=== PATIENT | male | born 1965 | race Caucasian/White ===

== ENCOUNTER 2023-04-06 07:52 | Day surgery (SDC) | payer OTHER, SELFPAY ==
[2023-04-05 13:32] VITALS: BMI 34.4
[2023-04-06] VITALS (14 sets, daily range): BP systolic 117–152; BP diastolic 73–109; PULSE 82–104; RESP 9–17; TEMP 36.2–36.6; O2SAT 90–98; BMI 34.4
--- NOTE | 2023-04-06 | DI.RAD.S_ITS ---
PROCEDURE: XR HIP W PEL IF DONE LT 2V INDICATIONS: LEFT HIP POST OP TECHNIQUE: AP pelvis and lateral view of the left hip acquired. [facility], 04/06/2023, 11:45. FINDINGS: Bones: Patient is status post left hip arthroplasty, with hardware components in expected positions. The hip joint appears congruent. The visualized bony structures appear intact. Soft tissues: Overlying postoperative changes are noted. No suspicious soft tissue densities. IMPRESSION: Stable appearance of left hip arthroplasty. Dictated by: June Tobias M.D. on 04/06/2023 at 15:29 Approved by: June Tobias M.D. on 04/06/2023 at 15:29
[2023-04-06] MEDS: LACTATED RINGERS 1,000 ML 100 ML IV ×3 (08:26→14:19)
--- NOTE | 2023-04-06 08:42 | SUR.PREOP ---
AWAITING PREOP ORDERS FROM DR. MILLER
[2023-04-06] MEDS: VANCOMYCIN 1,000 MG/200 ML PIGGYBACK 200 MG IV (09:19)
--- NOTE | 2023-04-06 10:05 | PM.PREOP ---
Pre-operative Note Interval Note History & Physical reviewed/Exam performed by Physician: Yes Changes to H&P: No
[2023-04-06] MEDS: CEFAZOLIN 2 GM/100 ML PREMIX 100 ML IV (10:10)
--- NOTE | 2023-04-06 11:14 | SUR.OPER ---
Lateral on padded OR bed. Gel axillary roll. Arms secured on padded armboard with pillow supporting top arm. Padded hip positioner braces x4 - anterior and posterior chest and pelvis. Additional gel pad used anterior pelvis. Gel pad under bottom leg from knee to foot and secured with tape over sheet.
[2023-04-06] MEDS: BUPIVACAINE LIPOSOME 266 MG/20 ML VIAL INJ ×2 (11:20→11:27)
[2023-04-06] MEDS: BUPIVACAINE 0.25% (PF) 60 ML, EPINEPHrine 0.3 MG INJ (11:26)
--- NOTE | 2023-04-06 12:10 | DI.RAD.S_ITS ---
PROCEDURE: XR PELVIS 1-2V INDICATIONS: INTEROPERATIVE LEFT HIP TECHNIQUE: Intra-operative view of the pelvis and hip acquired. COMPARISON: None. FINDINGS: Bones: Intraoperative devices prior to placement of arthroplasty prostheses are in expected positions. No fractures or suspicious bony lesions. Soft tissues: Overlying surgical retractors are present, along with other intraoperative changes. IMPRESSION: Intraoperative radiograph from left hip arthroplasty. Please see the operative report for further details. Dictated by: Cisco Andrew M.D. on 04/06/2023 at 13:15 Approved by: Cisco Andrew M.D. on 04/06/2023 at 13:16
[2023-04-06] MEDS: TRANEXAMIC ACID 1,000 MG VIAL 2000 MG INJ ×2 (12:19→12:33)
[2023-04-06] MEDS: ACETAMINOPHEN IV 1,000 MG/100 ML VIAL 400 MG IV (12:24)
[2023-04-06] MEDS: HYDROMORPHONE 2 MG INJ IV ×4 (13:10→13:30)
[2023-04-06] MEDS: OXYCODONE/ACETAMINOPHEN 5/325 TABLET 1 TAB PO (13:16)
--- NOTE | 2023-04-06 13:30 | P.OP_ITS ---
Operative Date/Time/Diagnoses Date of procedure: 04/06/23 Time of procedure: 11:00 Pre-op diagnosis: Severe left hip AVN Post-op diagnosis: same Procedure & Clinicians Procedure: Left total hip arthroplasty posterior approach Same procedure as scheduled: Yes Indications: The patient has had progressively worsening left hip pain with radiographic changes consistent with severe AVN with collapse of the left femoral head. Non- operative management has failed and the patient has requested total hip replacement. The risks, benefits and alternatives to surgery were discussed with the patient prior to proceeding. Risks discussed included, but were not limited to, failure to relieve pain, leg length discrepancy, dislocation, stiffness, infection, nerve damage, deep venous thrombosis, pulmonary embolism, stroke, coma, heart attack, permanent paralysis and , as well as the potential need for eventual revision of the prosthetic. Surgeon: Nory Taveras Electric Meter Repairer: Roberto Magallanes Anesthesia Type: General Operative Notes Findings: Severe left hip AVN with collapse of the femoral head, adequate bone, adequate stability Closure Type: primary Specimen(s): none sent Prosthetic devices, grafts, tissues, transplants, or devices: Taveras and Nephew polar size 5 standard offset with collar, size 62 cup, neutral poly liner, 40 mm +4 Oxinium head, one 6.5 mm screw Estimated Blood Loss (mL): 250 Blood products transfused: none Procedure in detail: The patient was seen in the pre-operative area, where the patient identified the left hip as the operative site and this was marked with my initials. The patient received pre-operative antibiotics and was taken to the operating room and placed on the operative table in the right lateral decubitus position after satisfactory anesthesia. A realtime captioner out was performed. The left leg was prepared from the ankle to the iliac crest with ChloroPrep in the usual fashion and draped through sterile drapes. The hip was approached through an approximately 20 cm incision centered over the greater trochanter and curving gently posteriorly as it went proximally. This was carried sharply to the fascia ashleigh, which was divided and retracted with a self retaining retractor. The trochanteric bursa was excised with care being taken to avoid the sciatic nerve, which was identified and protected throughout the case. The short external rotators were incised and the capsulomuscular flap was raised and tagged for later repair. The hip was dislocated, and a femoral neck osteotomy performed approximately 15 mm above the lesser trochanter. Retractors were placed around the femur. The canal was opened with a box cutting osteotome, followed by a T handled reamer and a lateralizing reamer. The chili pepper broach was then used, followed by sequential broaching until there was good stability of the broach in the femur. Calcar reaming was performed. Retractors were placed to expose the acetabulum. The labrum and central soft tissues were removed. Reaming was performed initially going up in 2 mm increments, then 1 mm increments until good bite was obtained with an odd sized reamer. The cup 1 mm larger than the last reamer was then inserted using the ap propriate anteversion guides. It was further stabilized with a single screw. A trial neutral liner was placed. A trial head and neck were then placed and the hip relocated and checked for leg length and stability. An intraoperative film confirmed the component position and no evidence of fracture. The patient was stable in the position of sleep, of squatting, and could be put through a range of motion with 45 degrees internal rotation without dislocation. At 90 degrees flexion, internal rotation to 70? was possible before dislocation. This was felt to be satisfactory and the appropriate components were opened, and the trials were removed. The acetabular liner was impacted into position. The final stem was then impacted into the prepared femoral canal. A brief Betadine soak was performed while trialing with head options. The hip was meticulously irrigated with normal saline. Finally the femoral head was impacted onto the stem. The acetabulum was cleared of all material and the hip relocated one final time. The capsulomuscular flap was then repaired to the greater trochanter though an awl hole using the tag sutures. The short external rotators were repaired with a nonabsorbable suture. The fascia ashleigh was closed with Vicryl. The subcutaneous layer was closed with barbed sutures and surgical glue. An Aquacel Ag dressing was applied and the patient was taken to recovery having tolerated the procedure well. Complications: none Post-operative Condition: stable Disposition: Acute Care Plan for aftercare: The patient will be maintained on a standard total hip replacement protocol with weight bearing as tolerated and posterior hip precautions. The patient will receive Aspirin and sequential compression devices for DVT prophylaxis. The patient will be discharged home when safe for the home environment.
--- NOTE | 2023-04-06 14:34 | OT.IPNOTE ---
Pt just came up to the floor and to check on pt tomorrow for OT eval.
--- NOTE | 2023-04-06 15:35 | PT.IIE ---
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) Surgery Performed Operation Date: 04/06/23 10:15 Actual Procedures p Total Hip Arthroplasty(Left) - Nory Taveras MD Medical History (Last Updated 04/05/23 @ 13:41 by Yuliana Pollock RN) Ankle fracture HTN (hypertension) RBBB (right bundle branch block) (~2019) Physical Therapy Inpatient Evaluation/Re-Eval M1 PT/OT-IP Prior Functional Status Start: 04/06/23 16:31 Freq: NEEDED Status: Active Protocol: Document 04/06/23 15:35 AB (Rec: 04/06/23 16:41 AB [id number]) Medical Review Prior Functional Status Medical History Reviewed Yes Communication able to make needs known Mobility and Gait pt stated that he is independent with all mobilities and ambulation without AD but has been using 1 crutch for mobility ~ 1 month since he found out how bad his hip was after xray result Social History Household Members family Living Arrangements House Number of Floors (Floors) Two Floors Number of Stairs To Enter/Railing? 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 and younger sister His brother lives a few houses away and will be able to assist him if needed M2 PT-IP Current Condition Start: 04/06/23 16:31 Freq: NEEDED Status: Active Protocol: Document 04/06/23 15:35 AB (Rec: 04/06/23 16:41 AB [email or web address]) Physical Therapy Current Condition Current Condition Evaluation Date 04/06/23 Treatment Diagnosis s/p L TRES posterior approach; difficulty in walking Onset Date 04/06/23 M3 PT-IP Subjective Start: 04/06/23 16:31 Freq: NEEDED Status: Active Protocol: Document 04/06/23 15:35 AB (Rec: 04/06/23 16:41 AB [id number]) Subjective Physical Therapy Visit Type Type Initial Evaluation Visit Start Time 15:35 Visit Stop Time 16:30 Total Visit Minutes 55 Number of COOLING ROOM ATTENDANT Visits 0 Physical Therapy Visit Comments Patient Comments agreeable to do PT Therapy Pain Assessment Pain When Pain Assessed At Rest Pain Present Pain Present Pain Reported Location LEFT HIP Scale Used pain scale not stated: little pain per pt Pain Management Techniques Apply Cold,Distraction, Modification of Treatment,Re- positioning,Timing of Activity with Medications M4 PT-IP Mobility and Gait Start: 04/06/23 16:31 Freq: NEEDED Status: Active Protocol: Document 04/06/23 15:35 AB (Rec: 04/06/23 16:41 AB [id number]) PT-Bed Mobility Assessment Supine to Sit Supine to Sit Standby Assistance Sit to Supine Sit to Supine Standby Assistance PT-Transfer Assessment Sit to and From Stand Sit to and from Stand Contact Guard Assistance,1 Person Assistance,Use of Upper Extremities Equipment Transfer Assistive Device Gait Belt,Front Wheeled Walker Orthotic/Prosthetic Devices or Brace: No Transfers Transfer Destination Toilet Transfer Technique ambulated Transfer Ability Level of Assist Contact Guard Assistance,1 Person Assistance,Use of Upper Extremities Comments Mobility Comments pt supine in bed. BP: 144/90. educated pt on posterior hip precautions. pt completed supine to sit SBA . able to sit on EOB SBA. BP : 134/101. pt requested to use the toilet. completed sit to stand CGA and ambulated to the toilet ~ 15 ft using FWW CGA. able to maintain standing using FWW for support SBA to CGA while completing toileting. pt ambulated in room using FWW ~ 35 ft CGA. pt requested to go back to bed. completed sit to supine SBA. positioned pt in bed. call light and table placed within reach. Gait Assessment Gait Gait Assistance Required: Contact Guard Assist Distance (Feet) 35 Able to Maintain Weight Bearing Status Yes During Gait Assistive Devices Assistive Device Gait Belt,Front Wheeled Walker Orthotic/Prosthetic Devices or Brace: No Gait Deviations General Gait Pattern Antalgic,Decreased Stride Length,Decreased Feet Clearance Factors Limiting Gait Function Factors Limiting Gait Function Decreased Activity Tolerance, Decreased Strength,Limited Range of Motion,Pain,Poor Balance PT-Balance Assessment Sitting Balance and Reactions Static Sitting Balance Ability Normal Dynamic Sitting Balance Ability Normal Standing Balance and Reactions Static Standing Balance Ability Good Dynamic Standing Balance Ability Fair Device Used FWW M5 PT-IP Objective Assessments Start: 04/06/23 16:31 Freq: NEEDED Status: Active Protocol: Document 04/06/23 15:35 AB (Rec: 04/06/23 16:41 AB [id number]) Orientation Orientation/Cognition Level of Alertness Alert Orientation Name,Place,Situation Language Function Ability No Deficits Noted Safety Awareness Understands Safety Issues Memory Description Short Term Impaired Gross Range of Motion Lower Extremity ROM Assessment Within Functional Limits Strength Lower Extremity Strength Assessment Within Functional Limits Sensation Assessment Sensation Gross Sensation WNL Muscle Tone Muscle Tone WNL Yes M6 PT-IP Treatment Start: 04/06/23 16:31 Freq: NEEDED Status: Active Protocol: Document 04/06/23 15:35 AB (Rec: 04/06/23 16:41 AB [email or web address]) Physical Therapy Treatment Education Education Provided Precautions,Weight Bearing Status,Post-Op Packet,Safety M7 PT-IP Assessment and Plan Start: 04/06/23 16:31 Freq: NEEDED Status: Active Protocol: Document 04/06/23 15:35 AB (Rec: 04/06/23 16:41 AB [email or web address]) PT Summary Assessment and Plan Potential Rehabilitation Potential Good Status of Condition at Evaluation Evolving Summary Impairments Pain,ROM,Strength,Balance,Bed Mobility,Transfers,Gait, Activity Tolerance Assessment Summary pt s/p L TRES posterior approach POD0. pt requiring CGA with mobility using FWW. pt plans to go home with his brother to assist when needed. will continue to assess progress. will conduct caregiver training when appropriate as well as stair climbing training. Goals Bed Mobility Goal Independent Transfer Goal Independent,Front Wheeled Walker,Four Wheeled Walker Gait Goal Independent,Front Wheel Walker ,Four Wheel Walker Gait Distance 250 Other Goals improve transfers and ambulation using 4WW 300 ft mod I up/down 2 platform steps using FWW/4WW SBA Days to Meet Goals 5 Frequency of Treatment Frequency Of Treatment Twice a Day Treatment Plan Physical Therapy Treatment Plan Bed Mobility Training,Transfer Training,Gait Training, Therapeutic Exercise,Balance Retraining,Post Op Education, Discharge Planning,Hot or Cold Pack,Neuromuscular Re-ed, Coordination Retraining,Manual Therapy Other Recommendations and Next Treatment PT tx frequency: BID or as Focus tolerated Precautions Posterior Hip Precautions No Hip Flexion > 90 degrees,No Hip Internal Rotation,No Hip Adduction Weight Bearing Status Weight Bearing Status Weight Bear as Tolerated Allowed Weight Bearing Amount (enter % LLE WBAT or #) (%) Recommendations To Nursing Amount of Assist Needed 1 Person Assist Discharge Recommendations PT Discharge Recommendations Home with Assistance, Outpatient PT Transportation Needs at Discharge Private Vehicle
[2023-04-06] MEDS: CEFAZOLIN VIAL 3 GM in SODIUM CHLORIDE 0.9% 100 ML IV (20:32)
[2023-04-06] MEDS: ASPIRIN EC 81 MG TABLET PO (20:33)
[2023-04-06] MEDS: IBUPROFEN 400 MG TABLET PO (20:33)
[2023-04-06] MEDS: DOCUSATE 100 MG CAPSULE PO (20:34)
[2023-04-06] MEDS: ACETAMINOPHEN 325 MG TABLET 650 MG PO (20:34)
[2023-04-07] MEDS: hydroCHLOROthiazide 25 MG TABLET PO (01:32)
[2023-04-07 01:33] VITALS: BP 147/93; PULSE 96
[2023-04-07] MEDS: LOSARTAN 50 MG TABLET PO (01:33)
[2023-04-07] MEDS: CEFAZOLIN VIAL 3 GM in SODIUM CHLORIDE 0.9% 100 ML IV (01:34)
[2023-04-07 05:58] LABS: Hematocrit 43.5 % (41-53); Hemoglobin 14.9 g/dL (13.5-17.5)
[2023-04-07] MEDS: ACETAMINOPHEN 325 MG TABLET 650 MG PO (06:02)
[2023-04-07 08:00] VITALS: BP 130/83; PULSE 90; RESP 21; TEMP 36.4; O2SAT 100
--- NOTE | 2023-04-07 08:21 | PM.DS.1 ---
History of Present Illness History of Present Illness Date Patient Seen: 04/07/23 Time Patient Seen: 08:22 Chief complaint: Left Total Hip Arthroplasty Narrative: Operative Date/Time/Diagnoses Date of procedure: 04/06/23 Time of procedure: 11:00 Pre-op diagnosis: Severe left hip AVN Post-op diagnosis: same Procedure & Clinicians Procedure: Left total hip arthroplasty posterior approach Same procedure as scheduled: Yes Indications: The patient has had progressively worsening left hip pain with radiographic changes consistent with severe AVN with collapse of the left femoral head. Non-operative management has failed and the patient has requested total hip replacement. The risks, benefits and alternatives to surgery were discussed with the patient prior to proceeding. Risks discussed included, but were not limited to, failure to relieve pain, leg length discrepancy, dislocation, stiffness, infection, nerve damage, deep venous thrombosis, pulmonary embolism, stroke, coma, heart attack, permanent paralysis and , as well as the potential need for eventual revision of the prosthetic. Surgeon: Nory Taveras Membership Counselor: Roberto Magallanes Anesthesia Type: General Operative Notes Findings: Severe left hip AVN with collapse of the femoral head, adequate bone, adequate stability Closure Type: primary Specimen(s): none sent Prosthetic devices, grafts, tissues, transplants, or devices: Taveras and Nephew polar size 5 standard offset with collar, size 62 cup, neutral poly liner, 40 mm +4 Oxinium head, one 6.5 mm screw Estimated Blood Loss (mL): 250 Blood products transfused: none Discharge Providers Provider Discharge Date: 04/07/23 Primary care physician: Farheen Ward PA-C Consults: 04/06/23 10:16 Consult to Anesthesiology Routine Comment: Consulting Provider: Anesthesiologist Reason for consultation: Regional block for post operative pain control 04/06/23 14:07 Consult to Discharge Planning Routine Comment: Consult to Occupational Therapy Evaluate & Treat Comment: Physician Instructions: Evaluate and treat Consult to Physical Therapy Evaluate & Treat Comment: Physician Instructions: post op TRES protocol Discharge provider: Emi Marr PA-C Summary Hospital Course Discharge Diagnosis: Severe left hip avascular necrosis, s/p left total hip arthroplasty Hospital Course: Mr Mesa's hospital course was unremarkable. On the morning of POD# 1, he was feeling well and wanted to go home. He was eating and voiding without difficulty and his pain was well-controlled with oral medication. He was evaluated by PT throughout his stay and they felt he was safe to go home. Exam Vital Signs (past 8 hours): - 04/07/23 01:33 Pulse Rate 96 H Blood Pressure 147/93 H Oxygen Delivery Method Room Air Oxygen Flow Rate 0 Narrative Exam Narrative: 5/5 strength in hip flexors, quadriceps, hamstrings, DF, PF, EHL bilaterally. Sensation to light touch intact throughout LLE. Calf soft, compressible, nontender and without palpable cords or masses. Aquacel dressing with small amt of bloody drainage. Objective Labs 04/07/23 05:32 Labs: Laboratory Results - last 24 hr 04/07/23 05:32 Hgb 14.9 Hct 43.5 PFSH Medical History (Updated 04/05/23 @ 13:41 by Yuliana Pollock RN) Ankle fracture HTN (hypertension) RBBB (right bundle branch block) (~2019) Social History household members: family Smoking Status: Smoker, status unknown alcohol intake: current Discharge Assessment & Plan Assessment and Plan Assessment: Severe left hip avascular necrosis, s/p left total hip arthroplasty Plan of Treatment: Discharge home, multimodal pain control, ASA BID x 6 weeks for VTE prophylaxis, outpt PT, f/u in office in 2 weeks as scheduled. Discharge Plan Discharge Plan Patient Disposition: Home Discharge orders & Medications Discharge Orders: Discharge (Order); Ordered 04/07/23 Ordered By: Emi Marr Prescriptions: New oxycodone 5 mg Tablet 5 mg PO Q4-6H PRN (Reason: Pain, Moderate (4-6)) Qty: 40 0RF docusate sodium 100 mg Capsule 100 mg PO BID PRN (Reason: constipation) Qty: 60 1RF acetaminophen 325 mg Tablet 650 mg PO Q6H PRN (Reason: Fever/Mild Pain (1-3)) Qty: 240 0RF aspirin 81 mg Tablet,Delayed Release (Dr/Ec) 81 mg PO BID Qty: 90 0RF ibuprofen 400 mg Tablet 400 mg PO Q4H PRN (Reason: Pain, Mild (1-3)) Qty: 120 0RF Continued losartan 25 mg Tablet 50 mg PO DAILY hydrochlorothiazide 25 mg Tablet 25 mg PO DAILY Follow up/Referrals: Farheen Ward PA-C [Primary Care Provider] - Nory Taveras MD [Physician] - As previously scheduled (Follow up with Mackenzie Perkins PA-C, on 04/19/2023 @ 2:30 pm at [facility] office in [place].) Diet/Activity/Treatments Diet: Diet as Tolerated Activity: Weightbearing as tolerated to left leg. Posterior hip precautions. Skin/Wound/Dressing Care Report to your healthcare provider any signs of infection, such as:: chills, fever, night sweats, unusual drainage and unusual redness Dressing: May shower. Leave dressing in place until follow up in office. No bathing or otherwise soaking incision. Call the office if the dressing becomes saturated inside. Visit Report/Discharge Packet Instructions: DI for Hip Replacement Stand Alone Forms: Patient Portal/API, Surgery Discharge Discharge Data Primary Care Provider: Farheen Ward Attending Provider: Nory Taveras Quality VTE Deep Vein Thrombosis/Pulmonary Embolism Present on Admission: No
[2023-04-07] MEDS: ASPIRIN EC 81 MG TABLET PO (08:43)
[2023-04-07] MEDS: DOCUSATE 100 MG CAPSULE PO (08:43)
[2023-04-07] MEDS: OXYCODONE IR 5 MG TABLET PO (08:43)
[2023-04-07] MEDS: IBUPROFEN 400 MG TABLET PO (08:43)
--- NOTE | 2023-04-07 09:38 | OT.IP.EVAL ---
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) Presence of unspecified artificial hip joint (04/06/23) Surgery Performed Operation Date: 04/06/23 10:15 Actual Procedures p Total Hip Arthroplasty(Left) - Nory Taveras MD Past Medical History (Last Updated 04/05/23 @ 13:41 by Yuliana Pollock RN) Ankle fracture HTN (hypertension) RBBB (right bundle branch block) (~2019) Occupational Therapy Inpatient Evaluation/Re-Eval M1 PT/OT-IP Prior Functional Status Start: 04/07/23 09:22 Freq: NEEDED Status: Active Protocol: Document 04/07/23 09:23 [facility] (Rec: 04/07/23 09:37 [facility] [id number]) Medical Review Prior Functional Status Medical History Reviewed Yes Communication able to make needs known Mobility and Gait pt stated that he is independent with all mobilities and ambulation without AD but has been using 1 crutch for mobility ~ 1 month since he found out how bad his hip was after xray result Activities of Daily Living and IADL's Pt states having more difficulty with his left side for LB dressing needs. Social History Household Members family Living Arrangements House Number of Floors (Floors) Two Floors Number of Stairs To Enter/Railing? 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 and younger sister His brother lives a few houses away and will be able to assist him if needed M2 OT-IP Current Condition Start: 04/07/23 09:22 Freq: Status: Active Protocol: Document 04/07/23 09:23 [facility] (Rec: 04/07/23 09:37 [facility] [id number]) Occupational Therapy Current Condition Current Condition Evaluation Date 04/07/23 Treatment Diagnosis S/p L TRES Diagnosis Onset Date 04/06/23 Post Operative Precautions Posterior Hip Precautions No Hip Flexion > 90 degrees,No Hip Internal Rotation,No Hip Adduction M3 OT- IP Subjective and Pain Start: 04/07/23 09:22 Freq: Status: Active Protocol: Document 04/07/23 09:23 [facility] (Rec: 04/07/23 09:37 [facility] [id number]) OT- Subjective Occupational Therapy Visit Type Type Initial Evaluation Visit Start Time 09:01 Visit Stop Time 09:24 Total Visit Minutes 23 Occupational Therapy Visit Comments Patient Comments Pt agreed to work with OT, agreed to get dressed but wanting to just shower at home . Patient/Caregiver Goals TO go home. OT Pain Assessment Pain When Pain Assessed At Rest Pain Present Pain Present Pain Reported Location LEFT HIP Intensity 3 Scale Used Numeric (0 - 10) M4 OT- IP ADL's Start: 04/07/23 09:22 Freq: Status: Active Protocol: Document 04/07/23 09:23 [facility] (Rec: 04/07/23 09:37 [facility] [id number]) OT [id number] General Evaluation Self-Feeding Ability Independent OT ADL-Grooming General Evaluation Grooming Ability Independent OT ADL-Oral Care Comments Oral Care Comments Pt states will just do it at home. OT ADL-Dressing General Eval Lower Body Dressing Ability Minimal Assistance,Maximum Assistance Comments OT Dressing Comments Able to show pt use of sock aid and vocational examiner. Pt still needing some assist to get the heel of his left foot into the shoe. Pt states his sister in law will come over to assist him daily for dressing needs. OT ADL-Toileting Comments OT Toileting Comments Pt not having to go. Educated to stand to wipe would be best to follow his hip precautions as pt is very tall. Suggested use of wet ones and urinal at night. OT ADL-Bathing Comments OT Bathing Comments Pt states to shower at home. M5 OT- IP IADL's Start: 04/07/23 09:22 Freq: Status: Active Protocol: Document 04/07/23:23 [facility] (Rec: 04/07/23 09:37 [facility] [id number]) OT-Instrumental Activities of Daily Living Home Safety Awareness Awareness of Need for Assistance at Home Good Awareness Ability to Problem Solve Emergency Able to Problem Solve Situations M6 OT- IP Functional Cognition Start: 04/07/23 09:22 Freq: Status: Active Protocol: Document 04/07/23 09:23 [facility] (Rec: 04/07/23 09:37 [facility] [id number]) Cognitive Factors Limiting Selfcare Function Cognitive Ability Level of Alertness Alert Patient Orientation Name,Place,Situation Attention Span Ability Capable of Focused Attention, Capable of Sustained Attention Ability to Follow Commands Able to Follow Multi-Step Commands Safety Awareness Decreased Ability to Apply Precautions Cognitive Comments Cognitive Assessment Comments Pt needing occasional reminders to incorporate his hip precautions during ADl needs. Pt forgetting that lifting up his left leg in also considered a contraindication and that it is best to use a vocational examiner and sock aid to assist for his LB dressing needs. OT- Vision and Hearing OT- Hearing Assessment OT- Hearing Assessment WFL M7 OT- IP Mobility and Balance Start: 04/07/23 09:22 Freq: Status: Active Protocol: Document 04/07/23 09:23 [facility] (Rec: 04/07/23 09:37 [facility] [id number]) OT-Transfer Assessment Sit to and From Stand Sit to and from Stand Standby Assistance Transfers Transfer Ability Standby Assistance Technique Transfer Destination Chair Transfer Technique Stand Step Pivot Devices Transfer Assistive Devices Front Wheeled Walker OT- Balance Assessment Sitting Balance and Reactions Static Sitting Balance Ability Normal Dynamic Sitting Balance Ability Good Standing Balance and Reactions Static Standing Balance Ability Good Dynamic Standing Balance Ability Fair M9 OT- IP Assessment and Plan Start: 04/07/23 09:22 Freq: Status: Active Protocol: Document 04/07/23 09:23 [facility] (Rec: 04/07/23 09:37 [facility] [id number]) OT Summary Assessment and Plan Potential Rehabilitation Potential Excellent Analytic Complexity at Evaluation Low Summary OT Impairments Pain,Strength,Balance, Functional Mobility,Dressing, Toileting,Bathing,Toilet Transfers,Shower Transfers Progress Towards Goals Progressing Toward Goals Assessment Summary Pt low complexity and main barriers are steps, needing assist for LB dressing needs in which pt states his sister in law will come over daily to assist. Goals Grooming Goal Independent Dressing Goal Minimal Assistance Toileting Goal Independent Bathing Goal Standby Assistance Toilet Transfer Goal Independent Shower Transfer Goal Independent Days to Meet Goals 5 Frequency of Treatment Frequency Of Treatment Once a Day Treatment Plan OT Treatment Plan ADL Training,Functional Mobility,Patient/Family Education,Discharge Planning Discharge Recommendations OT Discharge Recommendations Home with Assistance, Outpatient PT Transportation Needs at Discharge Private Vehicle
--- NOTE | 2023-04-07 10:23 | PT.IPTN ---
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) Presence of unspecified artificial hip joint (04/06/23) Surgery Performed Operation Date: 04/06/23 10:15 Actual Procedures p Total Hip Arthroplasty(Left) - Nory Taveras MD Physical Therapy Treatment Note M2 PT-IP Current Condition Start: 04/06/23 16:31 Freq: NEEDED Status: Active Protocol: Document 04/06/23 15:35 [facility] (Rec: 04/06/23 16:41 AB [id number]) Physical Therapy Current Condition Current Condition Evaluation Date 04/06/23 Treatment Diagnosis s/p L TRES posterior approach; difficulty in walking Onset Date 04/06/23 M3 PT-IP Subjective Start: 04/06/23 16:31 Freq: NEEDED Status: Active Protocol: Document 04/07/23 10:35 TS (Rec: 04/07/23 10:46 TS [id number]) Subjective Physical Therapy Visit Type Type Treatment Note Visit Start Time 10:23 Visit Stop Time 10:35 Total Visit Minutes 12 Number of GRAPHIC ART DESIGNER Visits 1 Physical Therapy Visit Comments Patient Comments Pt found resting in chair, family in room, agreeable to PT. M4 PT-IP Mobility and Gait Start: 04/06/23 16:31 Freq: NEEDED Status: Active Protocol: Document 04/07/23 10:35 TS (Rec: 04/07/23 10:46 TS [id number]) PT-Transfer Assessment Sit to and From Stand Sit to and from Stand Standby Assistance,Use of Upper Extremities Equipment Transfer Assistive Device Gait Belt,Front Wheeled Walker Orthotic/Prosthetic Devices or Brace: No Comments Mobility Comments Sit to stand SBA with FWW, demonstrates good awareness of hip precautions. Pt ambulated ~175' SBA with fast paced step thru gait, no buckling or LOB. He performed platform step x2 CGA with assist from brother. Pt ambulated back to chair, preparing for d/c with family. Gait Assessment Gait Gait Assistance Required: Standby Assistance Distance (Feet) 175 Able to Maintain Weight Bearing Status Yes During Gait Assistive Devices Assistive Device Gait Belt,Front Wheeled Walker Orthotic/Prosthetic Devices or Brace: No Gait Deviations General Gait Pattern Antalgic Factors Limiting Gait Function Factors Limiting Gait Function Decreased Strength,Limited Range of Motion,Pain Comments Gait Comments See mobility comments. Stair Climbing Assessment Evaluation Level of Assist On Stairs Contact Guard Assistance,1 Person Assistance Devices Stair Climbing Assistive Devices Front Wheel Walker Technique/Endurance Stair Climbing Direction Ascend and Descend Stair Climbing Technique Step to Step Number of Steps Climbed 2 Comments Stair Climbing Comments Provided caregiver education on proper use of gait belt and assistance with stairs. PT-Balance Assessment Sitting Balance and Reactions Static Sitting Balance Ability Normal Dynamic Sitting Balance Ability Good Standing Balance and Reactions Static Standing Balance Ability Good Dynamic Standing Balance Ability Fair Device Used FWW M5 PT-IP Objective Assessments Start: 04/06/23 16:31 Freq: NEEDED Status: Active Protocol: Document 04/06/23 15:35 AB (Rec: 04/06/23 16:41 AB [id number]) Orientation Orientation/Cognition Level of Alertness Alert Orientation Name,Place,Situation Language Function Ability No Deficits Noted Safety Awareness Understands Safety Issues Memory Description Short Term Impaired Gross Range of Motion Lower Extremity ROM Assessment Within Functional Limits Strength Lower Extremity Strength Assessment Within Functional Limits Sensation Assessment Sensation Gross Sensation WNL Muscle Tone Muscle Tone WNL Yes M6 PT-IP Treatment Start: 04/06/23 16:31 Freq: NEEDED Status: Active Protocol: Document 04/07/23 10:35 TS (Rec: 04/07/23 10:46 TS [id number]) Physical Therapy Treatment Education Education Provided Precautions,Weight Bearing Status,Post-Op Packet,Safety M7 PT-IP Assessment and Plan Start: 04/06/23 16:31 Freq: NEEDED Status: Active Protocol: Document 04/07/23 10:35 TS (Rec: 04/07/23 10:46 TS [id number]) PT Summary Assessment and Plan Potential Rehabilitation Potential Good Summary Impairments Pain,ROM,Strength,Balance,Bed Mobility,Transfers,Gait, Activity Tolerance Progress Towards Goals Progressing Toward Goals Assessment Summary Pt is progressing well with his mobility. He is SBA for sit to stands and gait ~175' with FWW. He performed x2 platform steps CGA with FWW and support from brother. Education was provided to brother for donning of gait belt and assistance with steps . PT is recommending return home with assist from family. Goals Bed Mobility Goal Independent Transfer Goal Independent,Front Wheeled Walker,Four Wheeled Walker Gait Goal Independent,Front Wheel Walker ,Four Wheel Walker Gait Distance 250 Other Goals improve transfers and ambulation using 4WW 300 ft mod I up/down 2 platform steps using FWW/4WW SBA Days to Meet Goals 5 Frequency of Treatment Frequency Of Treatment Twice a Day Treatment Plan Physical Therapy Treatment Plan Bed Mobility Training,Transfer Training,Gait Training, Therapeutic Exercise,Balance Retraining,Post Op Education, Discharge Planning,Hot or Cold Pack,Neuromuscular Re-ed, Coordination Retraining,Manual Therapy Other Recommendations and Next Treatment PT tx frequency: BID or as Focus tolerated Precautions Posterior Hip Precautions No Hip Flexion > 90 degrees,No Hip Internal Rotation,No Hip Adduction Weight Bearing Status Weight Bearing Status Weight Bear as Tolerated Allowed Weight Bearing Amount (enter % LLE WBAT or #) (%) Recommendations To Nursing Amount of Assist Needed Standby Assistance Discharge Recommendations PT Discharge Recommendations Home with Assistance, Outpatient PT Transportation Needs at Discharge Private Vehicle
--- NOTE | 2023-04-07 15:19 | CM.DANOTE ---
Initial DCP Assessment Note Pt is a 57 yo male, resident of [place], now POD#1 from left hip surgery by Dr Taveras PCP: Farheen Ward Payer: [employer] Reviewed chart, pt discussed in multidisciplinary rounds this morning. Therapy has cleared pt for return home w/family to assist and pt has planned for home, DC order from Ortho has already been initiated this morning. No barriers identified to patient's safe discharge home w/family to assist; close outpatient f/u recommended. ALANNA Pressley Discharge Planning/Care Management CM Discharge Assessment Start: 04/07/23 15:16 Freq: Status: Active Protocol: Document 04/07/23 15:17 [facility] (Rec: 04/07/23 15:19 [facility] [id number]) Discharge Planning Assessment Assigned Audit Clerk ALANNA Negron DPOA/Assigned Designee Name brother Camara Contact Information [phone] Advance Directives? No History Provided By Patient,Medical Record Prior Living Arrangements House Household Members family Type of transporation used prior to Drives own vehicle admit Independent with ADL's Yes Is patient alert and oriented? Yes Patient/Family Preference OP PT Therapy Barriers to Discharge No Comment s/p left total hip arthroplasty, patient planned to return home w/family to assist and therapies have cleared patient for this plan. DC home w/family and outpatient PT today Discharge Plan Home Transportation Arrangement Family Referrals Initiated None needed
== END 2023-04-07 10:50 | disposition home or self-care (01) ==
LOC: OR 07:56 → AC 07:56
PROVIDERS: PCP Physician Assistant; Referring Provider Orthopaedic Surgery; Visit Provider Orthopaedic Surgery
PROC: 0SRB0JZ Replacement of Left Hip Joint with Synthetic Substitute, Open Approach (ICD-10-PCS; CPT 27130; principal; 2023-04-06 10:15)
DX: M87.052 Idiopathic aseptic necrosis of left femur (principal); I10 Essential (primary) hypertension
CPT/HCPCS: 27130; 36415; 72170; 73502; 85014; 85018; 97162; 97165; 97530; 97535; C1776; C9290; J0131; J0171; J0690; J1170; J2250; J2704; J3010